=== PATIENT | female | born 1995 | race Two or more races ===

== ENCOUNTER 2025-06-07 00:39 | Inpatient (IN) | payer MEDICAID, SELFPAY ==
[2025-06-07] VITALS (108 sets, daily range): BP systolic 96–130; BP diastolic 53–73; PULSE 60–112; RESP 16–20; TEMP 36.5–37.3; O2SAT 87–100; BMI 36.2
--- NOTE | 2025-06-07 01:43 | XR_ITS ---
Examination: Complete OB ultrasound greater than 14 weeks Date and time of exam: June 07, 2025 0156 hours INDICATIONS: Vaginal discharge beginning one week ago, labor evaluation, unknown weight presentation Findings: Viable intrauterine single fetus with single amniotic sac presentation cephalic Cardiac motion 131 BPM Placenta anterior grade 2 Umbilical cord insertion seen Amniotic fluid index 4.0 cm Cervix 4.0 cm Ovaries obscured by bowel gas. Composite estimated gestational age based on BPD, head circumference, abdominal circumference, femur length is 37 weeks 0 days Estimated weight 3941.5 g. Survey of intracranial anatomy, spinal anatomy, abdominal anatomy, four-chamber heart performed with no abnormalities identified. Impression: Viable intrauterine gestation cephalic presentation The estimated weight 3941.5 g.
[2025-06-07 01:57] LABS: Basophils # (Auto) 0.0 Thou/mm3 (0.0-0.2); Basophils % (Auto) 0 % (0-2.5); Eosinophils # (Auto) 0.2 Thou/mm3 (0.0-0.5); Eosinophils % (Auto) 2 % (0-10); Hematocrit 31.3 % (36.0-46.0); Hemoglobin 10.2 g/dL (12.0-16.0); Immature Granulocytes Auto 0.04 Thou/mm3 (0.00-0.00); Lymphocytes # (Auto) 2.1 Thou/mm3 (1.0-4.8); Lymphocytes % (Auto) 20 % (10-50); Mean Corpuscular HGB Conc 32.6 g/dl (31.0-37.0); Mean Corpuscular Hemoglobin 26.8 pg (25.0-35.0); Mean Corpuscular Volume 82 fL (80-100); Monocytes # (Auto) 0.7 Thou/mm3 (0.0-0.8); Monocytes % (Auto) 6 % (0-12); Neutrophils # (Auto) 7.8 Thou/mm3 (1.8-7.7); Neutrophils % (Auto) 72 % (37-80); Nucleated Red Blood Cell # 0.00 Thou/mm3 (0.00-0.00); Nucleated Red Blood Cell % 0 /100 WBC (0); Platelet Count 323 Thou/mm3 (140-440); RDW Standard Deviation 48.0 fL (36.4-46.3); Red Blood Count 3.80 Miln/mm3 (4.00-5.20); White Blood Count 10.9 Thou/mm3 (3.6-11.0)
[2025-06-07 02:31] LABS: Syphilis Nonreactive (Nonreactive)
--- NOTE | 2025-06-07 03:28 | PC.NURSE ---
[id number] WILIAM Saleh reviewed WILIAM French charting regarding FHM and contractions
--- NOTE | 2025-06-07 03:36 | PRELIM_ITS ---
Obstetric ultrasound. June 07, 2025 at 0156 hours Clinical history: Complete ultrasound, EFW and presentation. No prior study is available for comparison. Findings: There is a gravid uterus with a live fetus in cephalic presentation of mean gestational age 37 weeks. cardiac activity is present at a heart rate of 131 beats per minute. The placenta is anterior in location, maturity grade II. There is no evidence of placenta previa or retroplacental hemorrhage. Amniotic fluid index is decreased at 4 cm with Maximum Vertical Pocket of 2.2 cm. Estimated weight is 3941.5 grams+/- 583 grams. Both ovaries are not visualized. No evidence of adnexal mass. There is no free fluid in the pelvis. The cervical length measures 4 cm. Impression: Gravid uterus with a single live fetus in cephalic presentation of mean gestational age 37 weeks. Moderate to marked oligohydramnios with Amniotic fluid index decreased at 4 cm and Maximum Vertical Pocket of 2.2 cm. Borderline macrosomia. Report Electronically Signed By: Matt Arango 06/07/2025 3:35:25 AM [EST]
[2025-06-07] MEDS: RINGERS LACTATED 1000 ML 1,000 ML 999 ML IV (05:40)
--- NOTE | 2025-06-07 07:03 | PD.LDHP ---
Documentation for date of: 06/07/25 OB Labor/Induct. HPI History of Present Illness Chief complaint: Term induction of labor : 7 Term pregnancies: 3 pregnancies: 0 Living children: 3 History of Abortions: Spontaneous and Elective: 3 History of Vaginal deliveries: 3 History of sections: No History of : No Date of last menstrual period: 09/01/24 GERARDO: 06/08/25 Gestational Age (weeks): 39 Gestational Age (days): 1 Gestational age based on last menstrual period: 39 History of present illness: The patient is a 30-year-old -0-3-3 at 39-6/7 weeks brought in for an elective elective induction of labor secondary to term and a favorable cervix. care is with [facility]. She was admitted in the middle of the night on 06/07/2025 3- 4 cm dilated. She had one oral Cytotec placed. She progressed to 5 cm dilatation and has an epidural. History of Present Dating criteria: LMP confirmed by 2nd trimester US Adequate Care: Yes Ultrasounds: normal mid trimester US Obstetrical complications: none Medical complications: none Labs Maternal Blood Type: O Pos Labs: Negative: RPR, Hepatitis B, Rubella Titre (Rubella nonimmune), HIV, Chlamydia and Gonorrhea and Unknown: Herpes Type 1, Herpes Type 2 and Group Beta Strep Past Medical History Surgical History SURGICAL: Negative Section Meds Home Medications and Allergies Home Medications ?Medication ?Instructions ?Recorded ?Confirmed ?Type vitamins no.144-folic tab PO 09/15/21 History acid 400 mcg chewable tablet () Held on 06/07/25. Instructions: fabio states she ahs not been taking PNV Allergies Allergy/AdvReac Type Severity Reaction Status Date / Time No Known Allergies Allergy Verified 07/09/24 16:57 OB Exam Physical Exam Vital signs: Temp Pulse Resp BP Pulse Ox 99.0 F 60 17 108/55 L 100 06/07/25 06:37 06/07/25 07:01 06/07/25 06:37 06/07/25 07:01 06/07/25 07:01 Routine Abdominal Exam Abdominal: Present soft Detailed Labor and Delivery Exam Effacement (%): 70 Cervix position: mid station: -2 Consistency: soft Presentation: Vertex Membranes: intact monitor accelerations: 15x15 monitor decelerations: None exterminator helper variability: Moderate (11-25) Contraction frequency (min): Irregular on admission Contraction intensity: Mild (On admission) OB Results Labs 06/07/25 01:36 Labs: Short CBC 06/07/25 Range/Units 01:36 WBC 10.9 (3.6-11.0) Thou/mm3 Hgb 10.2 L (12.0-16.0) g/dL Hct 31.3 L (36.0-46.0) % Plt Count 323 (140-440) Thou/mm3 OB Assessment & Plan Assessment and Plan (1) Normal in third trimester: Status: Acute Assessment and plan: Status post Cytotec x 1, kicked into labor. Anticipate (2) Active labor at term: Status: Acute Additional Plan Induction method: per misoprostol protocol Plan: anticipate NVD
--- NOTE | 2025-06-07 07:11 | PC.NURSE ---
[id number] RN evaluates and agrees with RN Gillian documentation
[2025-06-07] MEDS: MINERAL OIL 30 ML UDC TOP (09:10)
[2025-06-07] MEDS: OXYTOCIN INJ 10 UNIT/ML VIAL IM (09:21)
[2025-06-07] MEDS: OXYTOCIN in NS 20 units 20 UNIT/1,000 ML BAG 125 UNIT IV (09:22)
[2025-06-07] MEDS: TRANEXAMIC ACID 1,000 MG IVPB 1,000 MG/100 ML BAG 200 MG IV ×2 (09:25→10:21)
--- NOTE | 2025-06-07 09:32 | OBDSUM_ITS ---
Data ([place]) Data Hx Section: No : 7 Term: 3 : 0 Livin Abortions: Spontaneous & Theraputic: 3 Delivery Data ([facility]) Labor Data Initiation of labor: Induction Induction/Augmentation Agent: Cytotec-PO ROM date: 06/07/25 ROM time: 09:05 Amniotic membrane rupture type: Artificial Amniotic fluid description: Clear Delivery Data EDC: 06/07/25 EDC calculated by:: LMP/early US confirmation Date of arrival to unit: 06/07/25 Time of arrival to unit: 00:39 Onset of labor date: 06/07/25 Onset of labor time: 07:00 Complete dilation date: 06/07/25 Complete dilation time: 09:05 [place] delivery date: 06/07/25 [place] delivery time: 09:15 Placenta delivery date: 06/07/25 Placenta delivery time: 09:21 Delivered by: Jordyn Santacruz Delivery nurse: duane palencia nurse: beth Motion Picture Narrator at delivery: No Support person(s) at delivery: fob Delivery Method Delivery method: Normal Vaginal Delivery Presentation: Vertex position: ROP Anesthesia Type Anesthesia Type: Epidural Delivery Room Medications Delivery room medications: Pitocin 10 u IM, Pitocin 20 u IV, Cytotec 800 DC and other (TXA x2) Placenta Placenta delivery description: Spontaneous (inspected, intact) Cord blood sent to lab: Yes cord blood collection: Cord Blood Type Episiotomy Episiotomy description: None (intact) EBL Estimated blood loss (ml): 400 Umbilical Cord cord description: 3 Vessels and Nuchal Cord (x1) [place] Data ([facility]) Data order: 1 's gender: Female weight (gms): 3250 kg Weight (pounds): 7165 lbs and 0.4 ozs 1 minute: 8 5 minutes: 9
[2025-06-07] MEDS: ACETAMINOPHEN 325 MG TABLET 650 MG PO (16:03)
[2025-06-07 19:59] LABS: Basophils # (Auto) 0.0 Thou/mm3 (0.0-0.2); Basophils % (Auto) 0 % (0-2.5); Eosinophils # (Auto) 0.1 Thou/mm3 (0.0-0.5); Eosinophils % (Auto) 1 % (0-10); Hematocrit 29.8 % (36.0-46.0); Hemoglobin 9.6 g/dL (12.0-16.0); Immature Granulocytes Auto 0.03 Thou/mm3 (0.00-0.00); Lymphocytes # (Auto) 1.8 Thou/mm3 (1.0-4.8); Lymphocytes % (Auto) 14 % (10-50); Mean Corpuscular HGB Conc 32.2 g/dl (31.0-37.0); Mean Corpuscular Hemoglobin 26.5 pg (25.0-35.0); Mean Corpuscular Volume 82 fL (80-100); Monocytes # (Auto) 0.8 Thou/mm3 (0.0-0.8); Monocytes % (Auto) 6 % (0-12); Neutrophils # (Auto) 10.2 Thou/mm3 (1.8-7.7); Neutrophils % (Auto) 79 % (37-80); Nucleated Red Blood Cell # 0.00 Thou/mm3 (0.00-0.00); Nucleated Red Blood Cell % 0 /100 WBC (0); Platelet Count 283 Thou/mm3 (140-440); RDW Standard Deviation 48.6 fL (36.4-46.3); Red Blood Count 3.62 Miln/mm3 (4.00-5.20); White Blood Count 12.9 Thou/mm3 (3.6-11.0)
[2025-06-07] MEDS: DOCUSATE SOD 100 MG CAPSULE PO (21:25)
[2025-06-08 00:26] VITALS: BP 113/74; PULSE 61; RESP 18; TEMP 36.7; O2SAT 98
[2025-06-08 04:00] VITALS: BP 95/60; PULSE 60; RESP 16; TEMP 36.6; O2SAT 98
[2025-06-08 07:17] VITALS: BP 100/65; PULSE 57; RESP 14; TEMP 36.4; O2SAT 99
--- NOTE | 2025-06-08 07:46 | ESPR_ITS ---
Subjective Subjective Interval history: No complaints of pain. No dizziness. Bonding and breast-feeding. He Exam Vital Signs Temp Pulse Resp BP Pulse Ox O2 Del Method 97.6 F 57 L 14 100/65 99 Room Air 06/08/25 07:17 06/08/25 07:17 06/08/25 07:17 06/08/25 07:17 06/08/25 07:17 06/08/25 07:17 Narrative Exam Normal heart rate and rhythm. Lungs clear no wheezes. Gravid abdomen. Gynecoid pelvis. S uterus well involuted. 3 below the umbilicus. Perineum intact no swelling. Small lochia. DTR 2+. And negative Homans' sign Objective Labs 06/07/25 19:30 Labs: Laboratory Results - last 24 hr 06/07/25 19:30 WBC 12.9 H RBC 3.62 L Hgb 9.6 L Hct 29.8 L MCV 82 MCH 26.5 MCHC 32.2 RDW Std Deviation 48.6 H Plt Count 283 D Neut % (Auto) 79 Lymph % (Auto) 14 [place] % (Auto) 6 Eos % (Auto) 1 Baso % (Auto) 0 Neut # (Auto) 10.2 H Lymph # (Auto) 1.8 [place] # (Auto) 0.8 Eos # (Auto) 0.1 Baso # (Auto) 0.0 Immature Gran # (Auto) 0.03 H Absolute Nucleated RBC 0.00 Immature Gran % 0 Nucleated RBC % 0 Assessment & Plan Problem List (1) Normal in third trimester: Status: Acute (2) Active labor at term: Status: Acute Assessment Comment Assessment comment: 24 hr pp Plan Comment Plan Comment: Discharge home with baby. Continue vitamins and iron. Tylenol ibuprofen for pain. Discussed danger signs symptoms and ER precautions. Increase fluids and rest and return in 2 to 3 weeks visit Time Spent With Patient Time: Total time spent is greater than 50% in coordination of care (as documented) at patient's floor/unit and/or counseling patient:
--- NOTE | 2025-06-08 07:50 | PD.LDDS ---
DS: Providers Provider Date of admission: 06/07/25 00:39 Primary care physician: Camron Chandler MD Admitting Provider: Di Castro MD ([facility]) Attending Provider on Admission: Jordyn Santacruz CNM Consults: 06/07/25 11:47 Referral Routine Comment: Attending Provider on DC: Jordyn Santacruz CNM Discharging Provider: Jordyn Santacruz CNM Summary/Hosp Course Brief History: The patient is a 30-year-old -0-3-3 at 39-6/7 weeks brought in for an elective elective induction of labor secondary to term and a favorable cervix. care is with [facility]. She was admitted in the middle of the night on 06/07/2025 3- 4 cm dilated. She had one oral Cytotec placed. She progressed to 5 cm dilatation and has an epidural. Peripartum Data Delivery Method: Normal Vaginal Delivery Episiotomy Description: None (intact) Laceration Description: no complications: none Time Spent with Patient Time attestation: Total time spent providing and/or coordinating discharge services: Exam Vital Signs Temp Pulse Resp BP Pulse Ox O2 Del Method 97.6 F 57 L 14 100/65 99 Room Air 06/08/25 07:17 06/08/25 07:17 06/08/25 07:17 06/08/25 07:17 06/08/25 07:17 06/08/25 07:17 Discharge Plan Plan Patient Disposition: HOME (Self Care) Patient condition on transfer: Stable Prescriptions/Referrals Prescriptions/Med Rec: No Action 400 mcg Tablet,Chewable PO Patient Comments: PATIENT STATES SHE IS NOT TAKING PNV Referrals: Camron Chandler MD [Primary Care Provider] - Patient/Caregiver Discharge Instructions Meds to Beds: No Discharge Activity: resume usual activities Print Language: Sami Activity Restrictions/Additional Instructions: Discharge home with baby. Continue vitamins and iron. Tylenol ibuprofen for pain. Discussed danger signs symptoms ER precautions. Increase fluids and rest. Discussed signs symptoms of infection. And return in 3 weeks Stand Alone Forms: Preeti Award Info., Patient Portal Info Letter Discharge Order Discharge Orders: Discharge (Routine); Ordered 06/08/25 Ordered By: Jordyn Santacruz Planned Discharge Date 06/08/25
[2025-06-08] MEDS: DOCUSATE SOD 100 MG CAPSULE PO (07:57)
[2025-06-08] MEDS: IBUPROFEN TAB 400 MG TABLET 800 MG PO (10:24)
== END 2025-06-08 12:00 | disposition home or self-care (01) | DRG 560 ==
LOC: S4SX 10:53 → S4NX 11:39
PROVIDERS: Admitting Provider Obstetrics & Gynecology; PCP Family Medicine; Visit Provider Advanced Practice Midwife
DX: O32.8XX0 Maternal care for other malpresentation of fetus, not applicable or unspecified (principal); O69.81X0 Labor and delivery complicated by cord around neck, without compression, not applicable or unspecified; Z37.0 Single live birth; Z3A.39 39 weeks gestation of pregnancy
CPT/HCPCS: 36415; 76805; 85025; 86780; 86850; 86900; 86901; J2590; J2795; J3010; J3490; J7120; S0191; A9270